=== PATIENT | male | born 1995 | race Caucasian/White ===

== ENCOUNTER 2024-11-08 09:45 | Emergency (ER) | payer BC, OTHER ==
[2024-11-08 10:00] VITALS: RESP 20; TEMP 98
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
[2024-11-08 10:47] VITALS: BP 148/68; PULSE 98; O2SAT 96
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
== END 2024-11-08 10:45 | disposition home or self-care (01) ==
LOC: ED 09:45
DX: S62.327A Displaced fracture of shaft of fifth metacarpal bone, left hand, initial encounter for closed fracture (principal); W22.09XA Striking against other stationary object, initial encounter; I10 Essential (primary) hypertension
CPT/HCPCS: 29125; 73130; 99283